=== PATIENT | female | born 2000 | race Caucasian/White ===

== ENCOUNTER 2022-07-17 14:41 | Emergency (ER) | payer OTHER, SELFPAY ==
--- NOTE | ~2022-07-17 | XR_ITS ---
EXAMINATION: XR KNEE, LEFT CLINICAL INFORMATION: Medial left knee pain. COMPARISON: None TECHNIQUE: Four views of the left knee. FINDINGS: Bones and soft tissues are normal. No fracture or joint effusion. Alignment is anatomic. Joint spaces are well maintained. No abnormal soft tissue calcification. XR/XR knee LT 4V IMPRESSION: Unremarkable left knee.
[2022-07-17 16:23] VITALS: BP 129/86; PULSE 98; RESP 18; TEMP 36.4; O2SAT 100; BMI 19.8
--- NOTE | 2022-07-17 16:23 | ED.LOWEXIN ---
HPI - Extremity Injury (Lower) General Chief Complaint: Extremity Injury, Lower <Evelyn Jane CNP - Last Filed: 07/17/22 16:29> Stated Complaint: L Knee Injury 1 Yr Ago <Evelyn Jane CNP - Last Filed: 07/17/22 16:29> Time Seen by Provider: 07/17/22 19:07 <Evelyn Jane CNP - Last Filed: 07/17/22 16:29> Source: patient <ROSE Elizondo - Last Filed: 07/17/22 19:41> Mode of arrival: ambulatory <ROSE Elizondo - Last Filed: 07/17/22 19:41> Limitations: no limitations <ROSE Elizondo Last Filed: 07/17/22 19:41> History of Present Illness HPI Narrative: This is a 22-year-old female presenting to the emergency department with complaints of left knee pain times few days worsening patient reports 2 days ago work patient's knee gave out, she fell hitting her knee on the ground. She tells me she has been having pain that is worse with weight-bearing activities and range of motion better at rest.Better with OTC knee brace. Patient reports she feels like at times her left knee gives out and locks. She reports that 5 years ago she was told that she had a broken left she tells me it is unclear how she broke it. Patient was ambulatory into the room without difficulty. Patient denies numbness, tingling, fevers, chills chest pain, shortness of breath. No fall with head strike, patient not on blood thinners. <ROSE Elizondo - Last Filed: 07/17/22 19:41> Related Data Allergies/Adverse Reactions: Allergies Allergy/AdvReac Type Severity Reaction Status Date / Time No Known Allergies Allergy Verified 07/17/22 16:29 <Evelyn Jane CNP - Last Filed: 07/17/22 16:29> Review of Systems Review of Systems: Constitutional : No Weight loss, No Fever, No Chills, No Fatigue, No Malaise ENT/Mouth : No sore throat, No Rhinorrhea Eyes: No Eye Pain, No Swelling, No Redness Cardiovascular : No Chest Pain, No SOB, No Dyspnea on Exertion, No Orthopnea, No Edema, No Palpitations Respiratory : No Cough, No Sputum, No Wheezing Gastrointestinal : No Nausea, No Vomiting, No Diarrhea, No Constipation, No abdominal Pain, No Hematochezia, No Melena Genitourinary : No Dysuria, No Urinary Frequency, No Hematuria, Musculoskeletal : + joint pain, No Myalgias, + Joint Swelling Skin : No Skin Lesions, No rash Neuro : No Weakness, No Numbness, No Dizziness, No Headache Psych : No Anxiety/Panic, No Depression All other systems reviewed and are negative <ROSE Elizondo - Last Filed: 07/17/22 19:41> Yes all other systems are reviewed and are negative <ROSE Elizondo - Last Filed: 07/17/22 19:41> [facility] Past Medical History Attestation statement: The following information was validated with the patient. <ROSE Elizondo - Last Filed: 07/17/22 19:41> Source: old records reviewed and nursing notes reviewed <ROSE Elizondo - Last Filed: 07/17/22 19:41> Social History Social History: Social History Smoked in Last 30 Days: Yes Use of substances other than those prescribed or required for medical reasons: Yes Substance Use Type: Marijuana Advance Directives: No Advance Directives Information Provided: No Patient : No <Evelyn Jane CNP - Last Filed: 07/17/22 16:29> Physical Exam Vital Signs: Vital Signs: Last Vital Signs Temp 97.6 F 07/17/22 16:23 Pulse 98 07/17/22 16:23 Resp 18 07/17/22 16:23 BP 129/86 07/17/22 16:23 Pulse Ox 100 07/17/22 16:23 O2 Del Method 07/17/22 16:23 BMI result Body Mass Index 19.8 <Evelyn Jane CNP - Last Filed: 07/17/22 16:29> Vital Signs: Last Vital Signs Temp 97.6 F 07/17/22 16:23 Pulse 98 12/30/22 16:23 Resp 18 07/17/22 16:23 BP 129/86 07/17/22 16:23 Pulse Ox 100 07/17/22 16:23 O2 Del Method 07/17/22 16:23 BMI result Body Mass Index 19.8 Vital signs stable <ROSE Elizondo - Last Filed: 07/17/22 19:41> Appearance: Alert.? Oriented X3.? No acute distress.? Head: Normocephalic, atraumatic, no step-offs or deformities Eyes: Pupils equal, round and reactive to light.? Neck: Normal inspection.? Neck supple.? CVS: Normal heart rate and rhythm.? Pulses normal.? Respiratory: No respiratory distress.? Breath sounds normal.? Abdomen: Soft and nontender.? Skin: Skin warm and dry.? Normal skin color.? Normal skin turgor.? Extremities: No lower extremity edema.? No calf ttp. 5/5 strength to bilateral upper and lower extremities. Full range of motion to bilateral knees. No overlying effusions, step-offs or deformities. No overlying skin changes. 2+ popliteal pulses, 2+ dorsalis pedis, posterior tibialis and anterior tibialis pulses equal bilateral. No [place] b/l Neuro: Oriented X 3.? No motor deficit.? No sensory deficit. CN 2-12 intact . Ambulating with steady gait normal coordination slight limp favoring right side. <ROSE Elizondo - Last Filed: 07/17/22 19:41> Course Course Course Narrative: This is an RME: Additional HPI, ROS, PE not included below will be deferred to primary provider. Patient is a 22 old female who presents to the emergency department for evaluation of traumatic left knee pain. 2 days ago Left knee gave out, and she struck her knee to the ground now having Pain localized to medial knee and swelling, keeps locking . She has been wearing a brace without much improvement. She reports an injury 5 years ago, and 4 years ago she found out it was previously fractured. She has been ambulatory with steady gait in , denies numbness, tingling, or cold sensation to leg/ foot. Plan: XR left knee <Evelyn Jane CNP - Last Filed: 07/17/22 16:29> Reevaluation(s) Reevaluation #1: Left knee unremarkable. Plan at this time is to give patient an Hernán wrap and crutches. Educated on rice. Educated on ibuprofen and Tylenol. Will discharge home with prednisone in case this is an inflammatory arthritis. Will have her follow-up with orthopedics if pain persists. Educated patient on diagnosis and treatment plan, answered all question, patient verbalizes understanding. At this time patient will be discharged home, advised to return with new or worsening symptoms. Educated on worrisome signs and symptoms and when to return. At this time I feel comfortable discharge home. <ROSE Elizondo - Last Filed: 07/17/22 19:41> Time: 19:39 <ROSE Elizondo - Last Filed: 07/17/22 19:41> Medications Administered Discontinued Medications Generic Name Dose Route Start Last Admin Trade Name Freq PRN Reason Stop Dose Admin Acetaminophen 975 mg 07/17/22 19:30 07/17/22 19:36 Acetaminophen 325 Mg Tablet PO 07/17/22 19:31 975 mg ONCE ONE Administration <Evelyn Jane CNP - Last Filed: 07/17/22 16:29> Medications Administered Discontinued Medications Generic Name Dose Route Start Last Admin Trade Name Freq PRN Reason Stop Dose Admin Acetaminophen 975 mg 07/17/22 19:30 07/17/22 19:36 Acetaminophen 325 Mg Tablet PO 07/17/22 19:31 975 mg ONCE ONE Administration <ROSE Elizondo - Last Filed: 07/17/22 19:41> Medical Decision Making Medical Decision Making [facility] Narrative: [age]-year-old female presenting with complaints of severe left knee pain x2 days worsening after traumatic injury work. Physical examination benign Concerns for sprain/strain. Unlikely fracture dislocation. No signs of neurovascular compromise. Plan at this time is imaging <ROSE Elizondo - Last Filed: 07/17/22 19:41> Discharge Plan Discharge Clinical Impression: Knee pain, left, Work related injury <Evelyn Jane CNP - Last Filed: 07/17/22 16:29> Patient Disposition: Home, Self-Care <Evelyn Jane CNP - Last Filed: 07/17/22 16:29> Instructions: Knee Pain (ED), R.I.C.E. Treatment (ED) <Evelyn Jane CNP - Last Filed: 07/17/22 16:29> Additional Instructions: Take your medications as prescribed. If you were prescribed antibiotics today, it is important that you take your medication to their entirety, do not skip any doses, do not finish them early. Follow-up with your primary care provider this week. Follow-up with orthopedics Return to the emergency department with new or worsening symptoms. Such as fevers, chills, chest pain, shortness of breath, nausea, vomiting, dizziness, headache, vision changes, lethargy In case of emergency call 911 You can take ibuprofen every 6 hours, Tylenol every 4 hours as needed for pain or discomfort. Rest, ice, compress and elevate extremity. Follow up with the work connection as this was a work related injury FINDINGS: Bones and soft tissues are normal. No fracture or joint effusion. Alignment is anatomic. Joint spaces are well maintained. No abnormal soft tissue calcification.? XR/XR knee LT 4V IMPRESSION: Unremarkable left knee. ? <Evelyn Jane CNP - Last Filed: 07/17/22 16:29> Referrals: [facility] [place] [facility] [Provider Group] Physician,Unknown J [Primary Care Provider] - 2 days <Evelyn Jane CNP - Last Filed: 07/17/22 16:29> Stand Alone Forms: Work/School Release <Evelyn Jane CNP - Last Filed: 07/17/22 16:29>
--- NOTE | 2022-07-17 19:35 | ED_ITS ---
HPI - Extremity Injury (Lower) General Chief Complaint: Extremity Injury, Lower Stated Complaint: L Knee Injury 1 Yr Ago Time Seen by Provider: 07/17/22 19:07 Related Data Allergies Allergy/AdvReac Type Severity Reaction Status Date / Time No Known Allergies Allergy Verified 07/17/22 16:29 [facility] Social History Social History Advance Directives: No Advance Directives Information Provided: No Physical Exam Vital Signs: Vital Signs: Last Vital Signs Temp 97.6 F 07/17/22 16:23 Pulse 98 07/17/22 16:23 Resp 18 07/17/22 16:23 BP 129/86 07/17/22 16:23 Pulse Ox 100 07/17/22 16:23 O2 Del Method 07/17/22 16:23 BMI result Body Mass Index 19.8 Medications Administered Discontinued Medications Generic Name Dose Route Start Last Admin Trade Name Freq PRN Reason Stop Dose Admin Acetaminophen 975 mg 07/17/22 19:30 07/17/22 19:36 Acetaminophen 325 Mg Tablet PO 07/17/22 19:31 975 mg ONCE ONE Administration Discharge Plan Discharge Clinical Impression: Knee pain, left, Work related injury Patient Disposition: Home, Self-Care Instructions: Knee Pain (ED), R.I.C.E. Treatment (ED) Additional Instructions: Take your medications as prescribed. If you were prescribed antibiotics today, it is important that you take your medication to their entirety, do not skip any doses, do not finish them early. Follow-up with your primary care provider this week. Follow-up with orthopedics Return to the emergency department with new or worsening symptoms. Such as fevers, chills, chest pain, shortness of breath, nausea, vomiting, dizziness, headache, vision changes, lethargy In case of emergency call 911 You can take ibuprofen every 6 hours, Tylenol every 4 hours as needed for pain or discomfort. Rest, ice, compress and elevate extremity. Follow up with the work connection as this was a work related injury FINDINGS: Bones and soft tissues are normal. No fracture or joint effusion. Alignment is anatomic. Joint spaces are well maintained. No abnormal soft tissue calcification.? XR/XR knee LT 4V IMPRESSION: Unremarkable left knee. ? Referrals: [facility] [place] [facility] [Provider Group] Physician,Unknown J [Primary Care Provider] - 2 days Stand Alone Forms: Work/School Release
[2022-07-17] MEDS: Acetaminophen 325 MG TABLET 975 MG PO (19:36)
[2022-07-17 19:44] VITALS: BP 121/66; PULSE 82; RESP 18; TEMP 36.7; O2SAT 96
--- NOTE | 2022-07-17 20:16 | PC.NURSE ---
pt utilizing crutches at time of discharge. Hernán wrap in place on L knee. extremity pwd. pt able to move digits. work note and discharge packet provided to pt. pt verbalized understanding of discharge plan
== END 2022-07-17 20:19 | disposition home or self-care (01) ==
PROVIDERS: Emergency Provider Emergency Medicine
DX: M25.562 Pain in left knee (principal)
CPT/HCPCS: 73564; 99283; 99284